=== PATIENT | female | born 1980 | race Caucasian/White ===

== ENCOUNTER 2017-07-16 13:15 | Emergency (ER) | payer SELFPAY ==
[~2017-07-16] VITALS: Ht 154.9 cm; Wt 61.2 kg
[~2017-07-16 13:15] MED LIST: ALBUTEROL0.09 MG/A3 IH; AMLODIPINE BESY1 TAB PO; AMOXICILLIN500 M2 PO; ATIVAN0.5 MG PO; BUSPAR15 MG PO; CIPROFLOXACIN500 MG PO; FIORICET 325 MG1 TAB PO; FLAGYL500 MG PO; LISINOPRIL5 MG PO; METOPROLOL100 MG PO; MOTRIN800 MG PO; NO DAILY MEDS; PREDNICOT20 MG PO; PRINIVIL10 MG PO; PROZAC10 MG PO; PROZAC20 MG PO; ULTRAM50 MG PO; VIBRAMYCIN100 MG PO; VITAMIN D-32000 UNI1 PO; XANAX1 MG PO; ZANTAC150 MG PO; ZOLOFT50 MG PO
[2017-07-16 13:29] VITALS: BP 127/80
== END 2017-07-16 14:43 | disposition home or self-care (01) ==
LOC: ED 13:15
DX: S93.402A Sprain of unspecified ligament of left ankle, initial encounter (principal); I10 Essential (primary) hypertension; F17.200 Nicotine dependence, unspecified, uncomplicated; Z88.6 Allergy status to analgesic agent; W22.8XXA Striking against or struck by other objects, initial encounter; Y93.89 Activity, other specified; Y92.9 Unspecified place or not applicable; Y99.9 Unspecified external cause status

== ENCOUNTER 2019-12-11 09:04 | Emergency (ER) | payer BC ==
[~2019-12-11] VITALS: Ht 154.9 cm; Wt 61.2 kg
[~2019-12-11 09:04] MED LIST changes: +DOXYCYCLINE100 M3 PO; +IBUPROFEN600 MG PO
[2019-12-11 09:08] VITALS: BP 116/79
[2019-12-11 09:32] LABS: HEMATOCRIT 43.1 % (37.0-47.0); HEMOGLOBIN 14.1 g/dl (12.0-16.0); MEAN CELL VOLUME 91.7 fl (81.0-99.0); MEAN CORPUSCULAR HGB CONC 32.7 g/dl (33.0-37.0); MEAN PLATELET VOLUME 10.3 fl (9.6-12.3); PLATELET COUNT AUTOMATED 330 10*3/uL (130-400); RED CELL DISTRI WIDTH 11.7 % (0-14.5); WHITE BLOOD COUNT 18.3 10*3/uL (4.8-10.8)
[2019-12-11 09:44] LABS: ALBUMIN 3.8 gm/dl (3.1-4.5); ALKALINE PHOSPHATASE 85 U/L (45-117); BUN 11 mg/dl (7-24); CHLORIDE 108 mmol/L (98-107); CREATININE 0.72 mg/dL (0.55-1.02); LIPASE 98 U/L (73-393); POTASSIUM 3.6 mmol/L (3.5-5.1); SGOT/AST 18 IU/L (3-35); SGPT/ALT 26 U/L (12-78); SODIUM 138 mmol/L (136-145); TOTAL PROTEIN 7.5 gm/dL (6.4-8.2)
[2019-12-11 10:00] LABS: ATYPICAL LYMPHS 8 % (0-0); PLATELET SUFFICIENCY NORMAL (NORMAL); TOTAL CELLS COUNTED 100 #CELLS
[2019-12-11 10:39] LABS: CLARITY CLOUDY (CLEAR); COLOR YELLOW (YELLOW)
[2019-12-11 10:40] LABS: BILIRUBIN NEGATIVE (NEGATIVE); BLOOD 3+ (NEGATIVE); GLUCOSE NEGATIVE (NEGATIVE); KETONE NEGATIVE (NEGATIVE); LEUKO ESTERASE NEGATIVE (NEGATIVE); NITRITE NEGATIVE (NEGATIVE); UROBILINOGEN 0.2 E.U./dl (0.2-1.0)
[2019-12-11 10:47] LABS: BACTERIA 2+; EPITHELIAL CELLS 15-20; MUCOUS 2+; RBC TNTC rbc/hpf (0-2)
[2019-12-11 10:49] LABS: CALCIUM OXALATE CRYSTALS 1+
[2019-12-11] MEDS ORDERED: KETOROLAC10 MG PO (12:42)
[2019-12-11] MEDS ORDERED: NORCO 5-325 TA1 EACH PO (12:42)
[2019-12-11] MEDS ORDERED: FLOMAX0.4 MG PO (12:42)
[2019-12-11] MEDS ORDERED: ZOFRAN4 MG PO (12:42)
== END 2019-12-11 12:52 | disposition home or self-care (01) ==
LOC: ED 09:04
PROVIDERS: Physician Assistant
DX: N20.1 Calculus of ureter (principal); I10 Essential (primary) hypertension; F17.200 Nicotine dependence, unspecified, uncomplicated; Z79.899 Other long term (current) drug therapy

== ENCOUNTER 2021-03-05 08:13 | Emergency (ER) | payer BC, OTHER ==
[~2021-03-05] VITALS: Ht 154.9 cm; Wt 72.6 kg
[~2021-03-05 08:13] MED LIST changes: +AMLODIPINE BESY10 MG PO; +FLOMAX0.4 MG PO; +KETOROLAC10 MG PO; +LOSARTAN POTASS50 M1 PO; +Motrin,Rufen800 MG PO; +NORCO 5-325 TA1 EACH PO; +ZOFRAN4 MG PO
[2021-03-05 08:16] VITALS: BP 102/69
[2021-03-05] MEDS ORDERED: Motrin,Rufen800 MG PO (10:10)
[2021-03-05] MEDS ORDERED: CYCLOBENZAPRINE10 MG PO (10:10)
== END 2021-03-05 10:21 | disposition home or self-care (01) ==
LOC: ED 08:13
DX: S46.812A Strain of other muscles, fascia and tendons at shoulder and upper arm level, left arm, initial encounter (principal); Z98.51 Tubal ligation status; Z90.49 Acquired absence of other specified parts of digestive tract; Z79.899 Other long term (current) drug therapy; Z88.5 Allergy status to narcotic agent; X50.0XXA Overexertion from strenuous movement or load, initial encounter; Y93.89 Activity, other specified; Y92.69 Other specified industrial and construction area as the place of occurrence of the external cause; Y99.9 Unspecified external cause status